=== PATIENT | male | born 1955 | race Caucasian/White ===

== ENCOUNTER 2020-01-01 03:35 | Emergency (ER) | payer MEDICARE ==
[~2020-01-01] VITALS: Ht 177.8 cm; Wt 93.0 kg
[~2020-01-01 03:35] MED LIST: ACET325T14 PO; ACID1GRA3 PO; AMPI500C2 PO; ARFO15VI INH; ASCORBIC ACID PO; ASPI81TA45 PO; ATOR40TA PO; AZIT500T10 PO; BISA10SU4 PR; BUDE1AMP INH; BUPR150T6 PO; BUPR150T73 PO; CA C1TAB39 PO; CARV6.2512 PO; CEFE2VIA3 IV; CHOL200074 PO; CLOP75TA52 PO; DEXT-230 PO; DONE10TA7 PO; FINA5TAB4 PO; FLUC100T4 PO; FLUC200T PO; FURO20TA3 PO; FURO40TA6 PO; GABA100C PO; INSU100C5 SQ-INSULIN; INSU100I11 SQ-INSULIN; INSU100I13 SQ-INSULIN; IPRA3AMP30 INH; IPRA4AER INH; ISOS10TA2 PO; LACT1CAP44 PO; LATA7.5D EACHEYE; LISI1TAB39 PO; LISI5TAB7 PO; METO25TA35 PO; NITR50CA PO; OMEG-157 PO; OMEP-110 PO; ONDA4TAB13 PO; ONDA4TAB13 SL; OXYC5TAB3 PO; PANT40TA3 PO; PANT40TA6 PO; POTA10TA5 PO; PRAV40TA2 PO; PRED10TA PO; PREG150C PO; SENN8.6T64 PO; SERT100T32 PO; TAMS-11 PO; TERA5CAP3 PO; VIT1TABL46 PO
--- NOTE | 2020-01-01 03:50 | NUR ---
PT ARRIVING FROM [place], REPORTED LOW BP AND LOW O2 SAT AND HIGH FSBG. PT IMMEDIATELY PLACED ON CARDIAC, BP AND O2 MONITORS. RESPIRATIONS EVEN AND UNLABORED. PT ADMINISTED HIMSELF 7 UNITS OF INSULIN THROUGH HIS PUMP, PUMP DOES NOT APPEAR TO BE PLACED PROPERLY. ERP MADE AWARE.
[2020-01-01 04:11] LABS: BASOPHILS % (AUTO) 1 % (0-1); EOSINOPHILS % (AUTO) 1 % (1-7); LYMPHOCYTES % (AUTO) 5 % (22-44); MEAN CORPUSCULAR HEMOGLOBIN 29.6 pg (27.5-34.5); MEAN CORPUSCULAR HGB CONC 32.5 g/dL (33.2-36.2); MEAN PLATELET VOLUME 11.4 fL (7.4-10.4); MONOCYTES % (AUTO) 5 % (2-9); NEUTROPHILS % (AUTO) 89 % (42-75); PLATELET COUNT 138 x10^3/uL (130-400); RED BLOOD COUNT 4.12 x10^6/uL (4.38-5.82)
[2020-01-01 04:16] LABS: MD NO
[2020-01-01 04:23] LABS: ALBUMIN 2.7 g/dL (3.4-5.0); ANION GAP 8 mmol/L (5-15); CALCIUM 9.2 mg/dL (8.5-10.1); CHLORIDE 100 mmol/L (98-107)
[2020-01-01 04:28] LABS: ALANINE AMINOTRANSFERASE 25 U/L (12-78); ALKALINE PHOSPHATASE 146 U/L (45-117); BILIRUBIN,TOTAL 0.7 mg/dL (0.2-1.0); CREATININE 1.57 mg/dL (0.7-1.3); TOTAL PROTEIN 6.8 g/dL (6.4-8.2); TROPONIN I < 0.015 ng/mL (0.000-0.045)
[2020-01-01] MEDS ORDERED: INSULIN REGULAR 100 UNITS/ML, 3ML VIAL IVPush ONE (05:00)
[2020-01-01] MEDS ORDERED: INSULIN SINGLE DOSE, ER ONE (05:03)
--- NOTE | 2020-01-01 05:10 | NUR ---
PT AND REFUSED INSULIN. PER "PT HAS AN INSULIN PUMP YOU CAN'T GIVE HIM INSULIN." PT AND EDUCATED ABOUT PT'S HIGH BS OF 499. THEN PROGRAMED PUMP TO GIVE BOLUS INSULIN CORRECTION USING THAT BS. ERP MADE AWARE. ERP BACK TO BEDSIDE TO UPATE PT ON POC.
--- NOTE | 2020-01-01 05:27 | NUR ---
MD LEIGH MADE AWARE OF BP. AWAITING ORDERS. NO NEW ORDERS RECEIVED.
[2020-01-01 06:27] VITALS: BP 118/88
--- NOTE | 2020-01-01 06:45 | NUR ---
PT REMAINS IN BED, CONNECTED TO CARDIAC, BP AND O2 MONITORS. AT BEDSIDE, CALL LIGTH IN REACH. RESPIRAITONS EVEN AND UNLABORED.
--- NOTE | 2020-01-01 06:59 | NUR ---
Pt resting in bed, awaiting for [facility] transport.
--- NOTE | 2020-01-01 08:05 | NUR ---
Patient/Caregiver given discharge instructions and they have confirmed that they understand the instructions. Patient ambulatory with steady gait. DC via [facility] back to [place]
== END 2020-01-01 08:07 | disposition short-term general hospital (02) ==
LOC: ED 04:52
DX: J44.9 Chronic obstructive pulmonary disease, unspecified (principal); E11.22 Type 2 diabetes mellitus with diabetic chronic kidney disease; N18.2 Chronic kidney disease, stage 2 (mild); E11.65 Type 2 diabetes mellitus with hyperglycemia; E87.5 Hyperkalemia; R07.9 Chest pain, unspecified; R94.31 Abnormal electrocardiogram [ECG] [EKG]; I50.9 Heart failure, unspecified; I25.2 Old myocardial infarction; Z87.891 Personal history of nicotine dependence
CPT/HCPCS: 36415; 71045; 80053; 84484; 85025; 93005; 99285; J1815; 82962